=== PATIENT | female | born 1955 | race Caucasian/White ===

== ENCOUNTER 2017-04-20 21:20 | Emergency (ER) | payer BC ==
[2017-04-20 21:52] VITALS: BP 119/62
--- NOTE | 2017-04-20 23:17 | UC ---
Eye Complaint HPI - HPI Summary HPI Summary: ONSET OF LEFT EYE REDNESS AND SOME GREEN DRAINAGE YESTERDAY. EYE FEELS BETTER TODAY. NO DRAINAGE. NO RECENT URI. NO VISUAL DISTURBANCES, LUGO, NAUSEA OR PAIN WITH EOM. NO FB SENSATION. PT ADMITS SHE RUBS HER EYES A LOT. RIGHT EYE MAY BE FEELING A BIT IRRITATED NOW TOO. - History of Current Complaint Chief Complaint: UCEye Stated Complaint: EYE IRRITATION Time Seen by Provider: 04/20/17 22:45 Hx Obtained From: Patient Onset/Duration: Sudden Onset, Lasting Days, Still Present Timing: Constant Severity Initially: Mild Severity Currently: Mild Pain Intensity: 0 Pain Scale Used: 0-10 Numeric Location of Injury: Conjunctiva Aggravating Factor(s): Nothing Alleviating Factor(s): Nothing Associated Signs And Symptoms: Positive: Drainage (Clear) - RESOLVED. Negative : Vision Impairment Bilateral, Vision Impairment Right, Vision Impairment Left, Fever - Allergies/Home Medications Allergies/Adverse Reactions: Allergies Allergy/AdvReac Type Severity Reaction Status Date / Time Tetracycline Allergy Severe See Comment Verified 04/20/17 21:52 Home Medications: Home Medications Aspirin TAB* [Aspirin 325 MG TAB*] 650 mg PO Q6H PRN 04/20/17 [History Confirmed 04/20/17] PMH/Surg Hx/FS Hx/Imm Hx Previously Healthy: Yes - Surgical History Surgical History: Yes Surgery Procedure, Year, and Place: TONSILS AGE 16;. TUBAL LIGATION;. breast biopsy - [facility] 09/2015 - Family History Known Family History: Positive: Hypertension - Social History Alcohol Use: None Alcohol Amount: "once every 2-3 years" Substance Use Type: None Smoking Status (MU): Former Smoker Review of Systems Constitutional: Negative Eyes: Drainage - RESOLVED, Eye Redness ENT: Negative Respiratory: Negative Cardiovascular: Negative Gastrointestinal: Negative All Other Systems Reviewed And Are Negative: Yes Physical Exam Triage Information Reviewed: Yes Appearance: Well-Appearing, No Pain Distress, Well-Nourished Vital Signs: Initial Vital Signs Temp 97.8 F 04/20/17 21:48 Pulse 60 04/20/17 21:48 Resp 16 04/20/17 21:48 BP 119/62 04/20/17 21:48 Pulse Ox 95 04/20/17 21:48 Eyes: Positive: Conjunctiva Inflamed - LEFT EYE SUBCONJUNCTIVAL HEMORRHAGE. Negative: Discharge ENT: Positive: Hearing grossly normal, Pharynx normal, TMs normal Neck: Positive: Supple Respiratory: Positive: No respiratory distress, No accessory muscle use Cardiovascular: Positive: Pulses Normal Abdomen Description: Positive: Soft Musculoskeletal: Positive: No Edema Neurological: Positive: Alert Psychological: Positive: Age Appropriate Behavior Skin: Negative: rashes Eye Complaint Course/Dx - Course Course Of Treatment: PRESENTATION C/W SUBCONJUNCTIVAL HEMORRHAGE. PT SYMPTOMS ARE ALREADY IMPROVED TODAY. CONSERVATIVE MGMT. PT TO CALL ME IF SX ARE NOT CONTINUING TO IMPROVE TOMORROW. - Differential Dx/Diagnosis Provider Diagnoses: LEFT EYE SUBCONJUNCTIVAL HEMORRHAGE Discharge - Discharge Plan Condition: Stable Disposition: HOME Patient Education Materials: Subconjunctival Hemorrhage (ED) Referrals: Gretta Vanegas MD [Primary Care Provider] - If Needed Additional Instructions: CALL ME TOMORROW IF YOUR EYE IS NOT CONTINUING TO IMPROVE. I AM HERE FROM 7A-2: 30P.
== END 2017-04-20 23:24 | disposition home or self-care (01) ==
LOC: UCEAST 21:20
DX: H11.32 Conjunctival hemorrhage, left eye (principal); Z87.891 Personal history of nicotine dependence
CPT/HCPCS: 99211; G0463

== ENCOUNTER 2020-02-15 09:09 | Emergency (ER) | payer BC ==
--- OUTSIDE RECORDS SUMMARY | 2020-02-15 09:40 | XMS REPORT | Continuity of Care Document ---
:1955 External Reference #:[id number] Author Name Idalmis Del Rio MD Address [address] [place] [address] Problems Active Problems Provider Date Depressive disorder Onset: 01/30/2019 Obesity Onset: 01/15/2018 Social History Type Date Description Comments Sex Unknown Tobacco Use Start: Unknown End: Patient is a former smoker quit in the Unknown Smoking Status Reviewed: 01/22/20 Patient is a former smoker quit in the Allergies, Adverse Reactions, Alerts Active Allergies Reaction Severity Comments Date Tetracycline No Reaction Indicated 07/03/2019 Medications Active Medications SIG Qnty Indications Ordering Date Provider Nitrofurantoin take 1 capsule 10caps N39.0 Idalmis Del Rio, 01/22/2020 Macrocrystal by mouth every MD 100mg Capsules 12 hours for 5 days History Medications No Active Medications Unknown 09/30/2019 - 01/22/2020 No Active Medications Unknown 09/18/2019 - 09/18/2019 Amoxicillin/Clavulanat 1 by mouth 14tabs pAryl Davila, 09/18/2019 - e Potassium twice a day DO 09/28/2019 875-125mg Tablets Immunizations CPT Code Status Date Vaccine Lot # [id number] Given 07/12/2018 Influenza Virus Vaccine, Quadrivalent, Split, Im Use 0.25ML 40295 Given 07/12/2018 Influenza Virus Vaccine, Quadrivalent, Split, Im Use 0.25ML 87801 Given 07/12/2018 Influenza Virus Vaccine, Quadrivalent, Split, Im Use 0.25ML 09405 Given 07/12/2018 Flu < 65 years 71504 Given 07/12/2018 Influenza Virus Vaccine, Quadrivalent, Split, Preservative Free 51748 Given 07/12/2018 Flumist 77853 Given 07/12/2018 Flu High Dose 47842 Given 07/12/2018 Influenza Virus Vaccine, Split, Preserv Free, Intradermal Use 31669 Given 07/28/2017 Influenza Virus Vaccine, Quadrivalent, Split, Im Use 0.25ML 97496 Given 07/28/2017 Influenza Virus Vaccine, Quadrivalent, Split, Im Use 0.25ML 64751 Given 07/28/2017 Influenza Virus Vaccine, Quadrivalent, Split, Im Use 0.25ML 87769 Given 07/28/2017 Flu < 65 years 48997 Given 07/28/2017 Influenza Virus Vaccine, Quadrivalent, Split, Preservative Free 53130 Given 07/28/2017 Flumist 38967 Given 07/28/2017 Flu High Dose 97554 Given 07/28/2017 Influenza Virus Vaccine, Split, Preserv Free, Intradermal Use Vital Signs Date Vital Result Comment 01/22/2020 2:35pm Height 64.5 inches 5'4.50" Weight 179.00 lb Heart Rate 62 /min Body Temperature 96.7 F O2 % BldC Oximetry 98 % room air BMI (Body Mass Index) 30.2 kg/m2 09/30/2019 11:31am BP Systolic 116 mmHg BP Diastolic 68 mmHg Weight 176.00 lb Heart Rate 67 /min Body Temperature 97.6 F O2 % BldC Oximetry 97 % Results Test Acquired Date Facility Test Result H/L Range Note CF Urinalysis 09/18/2019 [facility] Urine Specific 1.015 ( )- - [place] Ua PH Test Strip 6.5 Ua WBC Trace Ua Protein Negative Urine Glucose QL Negative Urine Ketones QL Test Strip Negative Urine Bilirubin TTL QL T-Strip Negative Urine Urobilinogen QN TS 0.2 Urine Nitrite QL TS Negative Ua Occult Blood Negative Procedures Description No Information Available Medical Devices Description No Information Available Encounters Type Date Location Provider Dx Diagnosis Office Visit 01/22/2020 [facility] Humphrey Del Rio MD N39.0 Urinary tract 1:45p infection, site not specified Office Visit 09/30/2019 [facility] Humphrey Del Rio MD M54.2 Cervicalgia 11:30a Office Visit 09/18/2019 [facility] Humphrey Davila DO B34.9 Viral infection, 3:15p unspecified R10.9 Unspecified abdominal pain Assessments Date Code Description Provider 01/22/2020 N39.0 Urinary tract infection, site not specified Idalmis Del Rio MD 09/30/2019 M54.2 Cervicalgia Idalmis Del Rio MD 09/18/2019 B34.9 Viral infection, unspecified Apryl Davila, 09/18/2019 R10.9 Unspecified abdominal pain Apryl Davila DO Plan of Treatment 01/22/2020 - Idalmis Del Rio MDN39.0 Urinary tract infection, site not specifiedNew Medication:Nitrofurantoin Macrocrystal 100 mg - take 1 capsule by mouth every 12 hours for 5 days Functional Status Description No Information Available Mental Status Description No Information Available Referrals Description No Information Available
--- OUTSIDE RECORDS SUMMARY | 2020-02-15 09:40 | XMS REPORT | Continuity of Care Document ---
:1955 External Reference #:[id number] Author Name Idalmis Del Rio MD Address [address] [place] [address] Problems Active Problems Provider Date Depressive disorder [...] - 09/18/2019 Amoxicillin/Clavulanat 1 by mouth 14tabs Apryl Davila, 09/18/2019 - e Potassium twice a day DO 09/28/2019 875-125mg Tablets Immunizations CPT Code Status Date Vaccine Lot # [id number] Given 07/12/2018 Influenza Virus Vaccine, Quadrivalent, Split, Im Use 0.25ML 56904 Given 07/12/2018 Influenza Virus Vaccine, Quadrivalent, Split, Im Use 0.25ML 32192 Given 07/12/2018 Influenza Virus Vaccine, Quadrivalent, Split, Im Use 0.25ML 09363 Given 07/12/2018 Flu < 65 years 26699 Given 07/12/2018 Influenza Virus Vaccine, Quadrivalent, Split, Preservative Free 28572 Given 07/12/2018 Flumist 41597 Given 07/12/2018 Flu High Dose 08520 Given 07/12/2018 Influenza Virus Vaccine, Split, Preserv Free, Intradermal Use 84814 Given 07/28/2017 Influenza Virus Vaccine, Quadrivalent, Split, Im Use 0.25ML 98116 Given 07/28/2017 Influenza Virus Vaccine, Quadrivalent, Split, Im Use 0.25ML 92906 Given 07/28/2017 Influenza Virus Vaccine, Quadrivalent, Split, Im Use 0.25ML 48590 Given 07/28/2017 Flu < 65 years 94829 Given 07/28/2017 Influenza Virus Vaccine, Quadrivalent, Split, Preservative Free 96935 Given 07/28/2017 Flumist 10808 Given 07/28/2017 Flu High Dose 65308 Given 07/28/2017 Influenza Virus Vaccine, Split, Preserv Free, Intradermal Use Vital Signs Date Vital Result Comment 01/22/2020 2:35pm BP Systolic 118 mmHg BP Diastolic 62 mmHg Height 64.5 inches 5'4.50" Weight 179.00 lb [...] Date Facility Test Result H/L Range Note Urine Culture And 01/22/2020 [facility] Urine Culture SEE RESULT [address] [place] [address] [phone] CFM Urinalysis 09/18/2019 [facility] Urine 1.015 ( )- - Specific [place] Ua PH Test Strip 6.5 Ua WBC Trace Ua Protein Negative Urine Glucose QL Negative Urine Ketones QL Test Strip Negative Urine Bilirubin TTL QL T-Strip Negative Urine Urobilinogen QN TS 0.2 Urine Nitrite QL TS Negative Ua Occult Blood Negative 1 SEE RESULT BELOW Name: MARY JANE CARO : [address]: Idalmis Del Rio MD Acct: [id number] Unit: [id number] AGE: 64 Location: [facility] Re01/22/20 SEX: F Status: REG REF SPEC: [id number] STEPHANIE: 01/22/20-[address]: Idalmis Del Rio MD REQ: [id number] RECD: 01/22/20-1722 STATUS: COMP _ SOURCE: URINE SPDESC: ORDERED: Urine Culture COMMENTS: [id number] Urine Source: Random Procedure Result Reported Site Urine Culture Final 01/24/20- 08 ML Organism 1 ENTEROCOCCUS FAECALIS [place] Count >100,000 (Many) CFU/ML 1. ENTEROCOCCUS FAECALIS [facility] RX --------- ------ Ampicillin <=2 S Penicillin 2 S Ciprofloxacin <=0.5 S Gentamicin High Level S Levofloxacin 1 S Linezolid 1 S Nitrofurantoin <=16 S * Quinupristin/Dalfopristin 4 R * Streptomycin High Level S Tetracycline <=1 S Doxycycline - Deduced S * Minocycline - Deduced S Tigecycline <=0.12 S Vancomycin 1 S Imipenem-Deduced S * Ampicillin/Sulbactam-Deduced S CONTINUED ON NEXT PAGE DEPARTMENT OF PATHOLOGY, [address] [place] [address] Rajendra Rodriguez M.D. Director [facility] # [id number] Patient: MARY JANE CARO [id number] (Continued) Specimen: [id number] Collected: 01/22/20-160 Received: 01/22/20-985 (Continued) Procedure Result Reported Site Urine Culture Final (continued) * These antibiotics are not available in the [facility] Formulary Contact the Microbiology Department for any additional antibiotic reporting. * - Main Lab . END OF REPORT DEPARTMENT OF PATHOLOGY, [address] [place] [address] Rajendra Rodriguez M.D. Director [facility] # [id number] Procedures Description No Information Available Medical Devices Description No Information Available Encounters Type Date Location Provider Dx Diagnosis Office Visit 01/22/[facility] Humphrey Del Rio MD N39.0 Urinary tract 1:45p infection, site not specified Office Visit 09/30/2019 [facility] Humphrey Del Rio MD M54.2 Cervicalgia 11:30a Office Visit 09/18/2019 [facility] Humphrey Davila DO B34.9 Viral infection, 3:15p unspecified R10.9 Unspecified abdominal pain Assessments Date Code Description Provider 01/22/2020 N39.0 Urinary tract infection, site not specified Idalmis Del Rio MD 09/30/2019 M54.2 Cervicalgia Idalmis Del Rio MD 09/18/2019 B34.9 Viral infection, unspecified Apryl Davila DO 09/18/2019 R10.9 Unspecified abdominal pain Apryl Davila DO Plan of Treatment 01/22/2020 - Idalmis Del Rio MDN39.0 Urinary tract infection, site not specifiedNew Medication:Nitrofurantoin Macrocrystal 100 mg - take 1 capsule by mouth every 12 hours for 5 days Functional Status Description No Information Available Mental Status Description No Information Available Referrals Description No Information Available
--- OUTSIDE RECORDS SUMMARY | 2020-02-15 09:40 | XMS REPORT | Continuity of Care Document ---
:1955 External Reference #:[id number] Author Name Idalmis Del Rio MD (transmitted by agent of provider Radha Sopjairo) Address [address] [place] [address] Problems Active Problems Provider Date Depressive disorder [...] CPT Code Status Date Vaccine Lot # [id number] Given 07/12/2018 Influenza Virus Vaccine, Quadrivalent, Split, Im Use 0.25ML 17039 Given 07/12/2018 Influenza Virus Vaccine, Quadrivalent, Split, Im Use 0.25ML 28424 Given 07/12/2018 Influenza Virus Vaccine, Quadrivalent, Split, Im Use 0.25ML 68155 Given 07/12/2018 Flu < 65 years 63528 Given 07/12/2018 Influenza Virus Vaccine, Quadrivalent, Split, Preservative Free 99584 Given 07/12/2018 Flumist 22084 Given 07/12/2018 Flu High Dose 89728 Given 07/12/2018 Influenza Virus Vaccine, Split, Preserv Free, Intradermal Use 58778 Given 07/28/2017 Influenza Virus Vaccine, Quadrivalent, Split, Im Use 0.25ML 34634 Given 07/28/2017 Influenza Virus Vaccine, Quadrivalent, Split, Im Use 0.25ML 78935 Given 07/28/2017 Influenza Virus Vaccine, Quadrivalent, Split, Im Use 0.25ML 49690 Given 07/28/2017 Flu < 65 years 64553 Given 07/28/2017 Influenza Virus Vaccine, Quadrivalent, Split, Preservative Free 84543 Given 07/28/2017 Flumist 51561 Given 07/28/2017 Flu High Dose 66235 Given 07/28/2017 Influenza Virus Vaccine, Split, Preserv [...] H/L Range Note Urine Culture And 01/22/2020 [facility] Urine Culture SEE RESULT [address] [place] [address] [phone] CFM Urinalysis 09/18/2019 [facility] Urine 1.015 ( )- - Specific [place] Ua PH Test Strip 6.5 Ua WBC Trace Ua Protein Negative Urine Glucose QL Negative Urine Ketones QL Test Strip Negative Urine Bilirubin TTL QL T-Strip Negative Urine Urobilinogen QN TS 0.2 Urine Nitrite QL TS Negative Ua Occult Blood Negative 1 SEE RESULT BELOW Name: MARY JANE CARO : [address]: Idalmis Del Rio MD Acct: [id number] Unit: [id number] AGE: 64 Location: [facility] Re01/22/20 SEX: F Status: REG REF SPEC: [id number] STEPHANIE: 01/22/20-[address]: Idalmis Del Rio MD REQ: [id number] RECD: 01/22/20-1722 STATUS: COMP _ SOURCE: URINE SPDESC: ORDERED: Urine Culture COMMENTS: [id number] Urine Source: Random Procedure Result Reported Site Urine Culture Final 01/24/20- 821 ML Organism 1 ENTEROCOCCUS FAECALIS [place] Count >100,000 (Many) CFU/ML 1. ENTEROCOCCUS FAECALIS [...] CONTINUED ON NEXT PAGE DEPARTMENT OF PATHOLOGY, [address] [place] [address] Rajendra Rodriguez M.D. Director [facility] # [id number] Patient: MARY JANE CARO [id number] (Continued) Specimen: [id number] Collected: 01/22/20-1609 Received: 01/22/20-172 (Continued) Procedure Result Reported Site Urine Culture Final (continued) * These antibiotics are not available in the [facility] Formulary Contact the Microbiology Department for any additional antibiotic reporting. * - [facility] . END OF REPORT DEPARTMENT OF PATHOLOGY, [address] [place] [address] Rajendra Rodriguez M.D. Director [facility] # [id number] Procedures Description No Information Available Medical Devices Description No Information Available Encounters Type Date Location Provider Dx Diagnosis Office Visit 01/22/2020 [facility] Humphrey Del Rio MD N39.0 Urinary tract 1:45p infection, site not specified Office Visit 09/30/2019 [facility] Humphrey Del Rio MD M54.2 Cervicalgia 11:30a Office Visit 09/18/2019 [facility] Humphrey Davila DO B34.9 Viral infection, 3:15p [...]
[2020-02-15 09:50] VITALS: BP 134/88
--- NOTE | 2020-02-15 09:55 | UC ---
Lower Extremity/Ankle HPI - HPI Summary HPI Summary: 64 y/o female presents to the urgent care c/o left 4th toe pain and bruise s/p injury while painting some [place] doors yesterday. Pt reports she was sitting on the flood and she was twisting around and injured his toe. Then when she started to walk had 4th toe. This morning she noticed her toe was red and bruise. Pain is 8/10 with walking, she is limping. She has to go to work and she thinks she can't b/c she has to stand up and walk all day. Pt denies fever , calf pain, SOB, cough , sick contacts, abdominal pain, N/V/D, numbness or tingling sensation over her lower extremities. No Hx of previous injury. - History of Current Complaint Chief Complaint: UCLowerExtremity Stated Complaint: TOE INJURY Time Seen by Provider: 02/15/20 09:54 Hx Obtained From: Patient ?: No Onset/Duration: Sudden Onset, Lasting Days - 1 day, Worse Since - today with limping Severity Initially: Moderate Severity Currently: Moderate Pain Intensity: 8 - at touch Pain Scale Used: 0-10 Numeric Aggravating Factor(s): Ambulation Alleviating Factor(s): Rest, OTC Meds Able to Bear Weight: Yes - Risk Factors Gout Risk Factors: Negative DVT Risk Factors: Negative Septic Arthritis Risk Factor: Negative - Allergies/Home Medications Allergies/Adverse Reactions: Allergies Allergy/AdvReac Type Severity Reaction Status Date / Time tetracycline Allergy See Comment Verified 02/15/20 09:44 Home Medications: Home Medications Aspirin TAB* [Aspirin 325 MG TAB*] 650 mg PO Q6H PRN 04/20/17 [History Confirmed 02/15/20] Ascorbic Acid TAB* [Vitamin C TAB*] 500 mg PO DAILY 02/15/20 [History Confirmed 02/15/20] Cholecalciferol CAP/TAB(NF) [Vitamin D3 CAP/TAB (NF)] 5,000 unit PO DAILY [History Confirmed 02/15/20] Ubidecarenone/Vit E/Vit E Mix [Co-Enzyme Q10 100 mg Softgel] 1 each PO DAILY [History Confirmed 02/15/20] PMH/Surg Hx/FS Hx/Imm Hx Previously Healthy: Yes Other Endocrine History: Osteoarthritis - Surgical History Surgical History: Yes Surgery Procedure, Year, and Place: TONSILS AGE 16;. TUBAL LIGATION;. breast biopsy - [facility] 09/2015 - Family History Known Family History: Positive: Hypertension, Diabetes - Social History Occupation: Employed Full-time Lives: With Family Alcohol Use: None Alcohol Amount: "once every 2-3 years" Substance Use Type: None Smoking Status (MU): Former Smoker Review of Systems All Other Systems Reviewed And Are Negative: Yes Constitutional: Positive: Negative Skin: Positive: Bruising - at the base of left 4th toe Eyes: Positive: Negative ENT: Positive: Negative Respiratory: Positive: Negative Cardiovascular: Positive: Negative Gastrointestinal: Positive: Negative Genitourinary: Positive: Negative Motor: Positive: Negative Neurovascular: Positive: Negative Musculoskeletal: Positive: Decreased ROM - left 4th toe, Other: - left 4th toe pain s/p injury Neurological/Mental Status: Positive: Negative Psychological: Positive: Negative Is Patient Immunocompromised?: No Physical Exam - Summary Physical Exam Summary: Vital Signs Reviewed: Yes General : well developed, well nourished female w/o any apparent distress Eyes: Positive: Conjunctiva Clear - PERRLA, EOMI ENT: Positive: Normal ENT inspection, Hearing grossly normal, Pharynx normal, TMs normal Neck: Positive: Supple, Nontender, No Lymphadenopathy Respiratory: Positive: Chest non-tender, Lungs clear, Normal breath sounds, No respiratory distress Cardiovascular: Positive: RRR, No Murmur, Pulses Normal Abdomen Description: Positive: Nontender, No Organomegaly, Soft. Negative: CVA Tenderness (R), CVA Tenderness (L) Bowel Sounds: Positive: Present Musculoskeletal: Positive: Strength Intact, ROM Intact, No Edema, left Foot/Toes : Pt is able to bear weight but ambulate with mild limping. LF foot :positive ecchymosis at the 4th MTPJ w/ soft tissue swelling and decrease ROM due to pain , no ulcers or break in skin integrity. The L foot is without obvious asymmetry or deformity when compared to the R foot. No bony step-off, Positive tenderness to palpation over the 4th toe over the the dorsal side No involvement of the 3rd and 5th toe, no tenderness over the mid and hindfoot, FROM of the left foot except for the 4th toe. Distal motor and neurovascular status are intact. Neurological Exam: Normal Psychological Exam: Normal Skin Exam: Normal Triage Information Reviewed: Yes Vital Signs: Initial Vital Signs Temp 97.9 F 02/15/20 09:39 Pulse 74 02/15/20 09:39 Resp 16 02/15/20 09:39 BP 134/88 02/15/20 09:39 Pulse Ox 97 02/15/20 09:39 Lower Extremity Course/Dx - Course Course Of Treatment: 64 y/o female presents to the urgent care c/o left 4th toe pain and bruise s/p injury while painting some [place] doors yesterday. Pt reports she was sitting on the flood and she was twisting around and injured his toe. Then when she started to walk had 4th toe. This morning she noticed her toe was red and bruise. Pain is 8/10 with walking, she is limping. She has to go to work and she thinks she can't b/c she has to stand up and walk all day. Pt denies fever , calf pain, SOB, cough , sick contacts, abdominal pain, N/V/D, numbness or tingling sensation over her lower extremities. No Hx of previous injury. Hx obtained. RT foot X-ray ordered,IMPRESSION: NO EVIDENCE FOR FRACTURE. IF THE PATIENT'S SYMPTOMS PERSIST RECOMMEND FOLLOW-UP IMAGING as per radiologist. Probably RT 4th toe sprain. Pt's toe body tape and immobilized with donnell-bandage and given a post-op shoe to avoid flexion. Advised RICE, and advised to take Naproxen PO for pain, If not improvement of symptoms to f/u with [facility] referral in 1 week for further evaluation and treatment. Pt understood and agreed with D/C instructions - Differential Dx/Diagnosis Differential Diagnosis/HQI/PQRI: Arthritis, Contusion, Dislocation, Fracture ( Closed), Sprain, Strain, Tendonitis Provider Diagnosis: Sprain of toe, fourth, left Discharge ED - Sign-Out/Discharge Documenting (check all that apply): Patient Departure - D/C home All imaging exams completed and their final reports reviewed: Yes - Discharge Plan Condition: Stable Disposition: HOME Patient Education Materials: Foot Sprain (ED) Forms: *Work Release Referrals: Idalmis Del Rio MD [Primary Care Provider] - 1 Week [facility] [Provider Group] - 1 Week Additional Instructions: 1-Please take Naproxen PO q8hrs after meals as directed to alleviate pain and swelling. 2-Please apply ice, keep your foot immobilized with the Donnell bandage and post-op shoe. Avoid strenuous exercise or standing for long periods of time. elevate your foot 3- Please f/u with your PCP or Sports Medicine in 1 week days if not improvement of symptoms for further evaluation and treatment. - Billing Disposition and Condition Condition: STABLE Disposition: Home
== END 2020-02-15 11:05 | disposition home or self-care (01) ==
LOC: UCEAST 09:09
DX: S93.505A Unspecified sprain of left lesser toe(s), initial encounter (principal); S90.122A Contusion of left lesser toe(s) without damage to nail, initial encounter; X50.1XXA Overexertion from prolonged static or awkward postures, initial encounter; Y93.89 Activity, other specified; Y92.009 Unspecified place in unspecified non-institutional (private) residence as the place of occurrence of the external cause; Z88.1 Allergy status to other antibiotic agents; Z87.891 Personal history of nicotine dependence
CPT/HCPCS: 99212; G0463

== ENCOUNTER 2020-10-17 16:10 | Observation (INO) ==
[2020-10-17] MEDS ORDERED: NS 0.9% 1000 ml BAG 1,000 ML IV ONE (17:10)
[2020-10-17 19:38] LABS: BUN/Creatinine Ratio 26.5 (8-20); Calcium 9.2 mg/dL (8.6-10.3); EGFR African American 104.7 (>60); EGFR Non-African American 86.6 (>60); Potassium 4.1 mmol/L (3.5-5.0)
[2020-10-17 20:54] LABS: ABS Monocytes 0.4 10^3/ul (0-0.8); ABS Neutrophils 5.5 10^3/ul (1.5-7.7); Hematocrit 38 % (35-47); Hemoglobin 12.7 g/dL (12.0-16.0); Lymphocyte % 14.8 %; Mean Corpuscular HGB Conc 33 g/dL (31-36); Mean Corpuscular Hemoglobin 32 pg (27-31); Mean Corpuscular Volume 95 fL (80-97); Mean Platelet Volume 8.5 fL (7.4-10.4); Platelet Count 178 10^3/uL (150-450); Red Blood Count 4.01 10^6 /uL (3.70-4.87); Red Cell Distribution Width 13 % (10-15); White Blood Count 6.9 10^3/uL (3.5-10.8)
[2020-10-17 22:31] LABS: Urine Appearance Cloudy; Urine Bilirubin Negative (Negative); Urine Blood Negative (Negative); Urine Color Yellow; Urine Glucose Negative (Negative); Urine Ketones Trace (Negative); Urine Nitrite Negative (Negative); Urine Protein Negative (Negative); Urine Urobilinogen Negative (Negative)
[2020-10-17 22:36] LABS: Urine Bacteria Absent (Absent); Urine Red Blood Cell 1+(3-5/hpf) (Absent); Urine Squamous Epithelial Cell Present (Absent); Urine White Blood Cell 3+(>20/hpf) (Absent)
[2020-10-18 06:16] LABS: ABS Lymphocytes 1.2 10^3/ul (1.0-4.8); ABS Monocytes 0.5 10^3/ul (0-0.8); ABS Neutrophils 3.3 10^3/ul (1.5-7.7); Eosinophil % 0.9 %; Hematocrit 33 % (35-47); Lymphocyte % 22.8 %; Mean Corpuscular HGB Conc 34 g/dL (31-36); Mean Corpuscular Hemoglobin 32 pg (27-31); Mean Corpuscular Volume 95 fL (80-97); Mean Platelet Volume 8.4 fL (7.4-10.4); Platelet Count 152 10^3/uL (150-450); Red Blood Count 3.44 10^6 /uL (3.70-4.87); Red Cell Distribution Width 13 % (10-15); White Blood Count 5.1 10^3/uL (3.5-10.8)
[2020-10-18 06:36] LABS: BUN/Creatinine Ratio 28.3 (8-20); Calcium 8.2 mg/dL (8.6-10.3); Potassium 3.8 mmol/L (3.5-5.0)
[2020-10-18 07:52] LABS: C Reactive Protein 16.01 mg/L (<8.01)
[2020-10-18] MEDS ORDERED: Enoxaparin 40 MG/0.4 ML SYR SUBCUT SCH (08:00)
[2020-10-18] MEDS ORDERED: Cholecalciferol (VIT D3) 1,000 unit TAB PO SCH (09:00)
[2020-10-18 16:21] VITALS: BP 113/51
== END 2020-10-18 17:00 | disposition home or self-care (01) ==
LOC: ED 16:10 → MEDTELE 16:10
PROVIDERS: ADMIT Internal Medicine; ATTEND Internal Medicine